=== PATIENT | female | born 1975 | race Caucasian/White ===

== ENCOUNTER 2021-12-01 20:12 | Emergency (ER) | payer BC ==
[~2021-12-01] VITALS: Ht 172.7 cm; Wt 70.5 kg
[2021-12-01 20:41] VITALS: BP 153/89
[2021-12-01] MEDS ORDERED: HYDROcodone/acetaminophen 5mg/325mg tablet PO ONE (22:55)
[2021-12-01] MEDS ORDERED: LIDOcaine 1% W/epiNEPHrine 1:100,000 20ml vial SQ ONE (22:55)
--- NOTE | 2021-12-01 23:17 | NUR ---
wound cleaned and irrigated with sterile h20
[2021-12-01] MEDS ORDERED: amoxicillin 250mg capsule PO ONE (23:55)
[2021-12-01] MEDS ORDERED: TETanus/Pertussis (Acell)/Diphther VAC/PF (Tdap-Adult) 0.5ml syringe IMVAC ONE (23:55)
[2021-12-01] MEDS ORDERED: AMOX500C2 PO (23:57)
--- NOTE | 2021-12-02 00:07 | NUR ---
po med given im given
== END 2021-12-02 00:08 | disposition home or self-care (01) ==
LOC: ER 20:13
DX: S01.511A Laceration without foreign body of lip, initial encounter (principal); Z79.2 Long term (current) use of antibiotics; W50.0XXA Accidental hit or strike by another person, initial encounter; Y93.89 Activity, other specified; Y92.89 Other specified places as the place of occurrence of the external cause; Y99.8 Other external cause status
CPT/HCPCS: 12001; 90471; 90715; 99283; J3490